=== PATIENT | male | born 1985 | race Caucasian/White ===

== ENCOUNTER 2017-01-17 16:06 | Emergency (ER) | payer SELFPAY ==
[2017-01-17 16:11] VITALS: BP 152/90; PULSE 78; RESP 16; TEMP 96.8; O2SAT 98
== END 2017-01-17 17:24 | disposition left against medical advice (07) ==
DX: Z53.21 Procedure and treatment not carried out due to patient leaving prior to being seen by health care provider (principal)

== ENCOUNTER 2018-01-20 14:16 | Emergency (ER) | payer OTHER, MEDICAID ==
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
[2018-01-20] MEDS ORDERED: OXYCODONE/APAP 5/325 TAB PO ONE ×2 (15:30→17:15)
[2018-01-20 17:15] VITALS: BP 116/80
== END 2018-01-20 17:21 | disposition home or self-care (01) ==
PROC: 2W3RX1Z Immobilization of Left Lower Leg using Splint (ICD-10-PCS; principal; 2018-01-20)
DX: S92.332A Displaced fracture of third metatarsal bone, left foot, initial encounter for closed fracture (principal); S92.015A Nondisplaced fracture of body of left calcaneus, initial encounter for closed fracture; F17.200 Nicotine dependence, unspecified, uncomplicated; V29.9XXA Motorcycle rider (driver) (passenger) injured in unspecified traffic accident, initial encounter; Y92.410 Unspecified street and highway as the place of occurrence of the external cause